=== PATIENT | male | born 1980 | race Caucasian/White ===

== ENCOUNTER 2019-07-29 20:59 | Emergency (ER) | payer MEDICAID ==
--- NOTE | 2019-07-29 21:46 | EDM.PDOC ---
ED HPI GENERAL MEDICAL PROBLEM - General Chief Complaint: Head Injury Stated Complaint: FELL AND HIT HEAD Time Seen by Provider: 07/29/19 21:23 Source of Information: Reports: Patient, Family History Limitations: Reports: No Limitations - History of Present Illness INITIAL COMMENTS - FREE TEXT/NARRATIVE: This is a 39-year-old male. Apparently he was working underneath a truck this evening and he managed to hit the back of his head on a brick drum. He does not remember much after that that he is got a headache and some dizziness he is not sure if he blacked out or had a seizure but he went into the house he was acting strange and did not make sense according to the family because of this they bring him to the ER and on their way in here he seemed to black out and was not responding to them. 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 Garcia at [facility]. 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 He is on clonazepam and temazepam. According to the family he is now making sense and he complains of some soreness in the back of his head on the left side at the mastoid process and occasionally tingling in his right fingers. He did get up and went to the bathroom with complete stability and no imbalance. Other than a headache he says he is feeling better and almost back to normal again. Head Pain Score (Numeric/FACES): 4 - Related Data Allergies Allergy/AdvReac Type Severity Reaction Status Date / Time Penicillins Allergy Rash Verified 07/29/19 21:10 Sulfa (Sulfonamide Allergy Rash Verified 07/29/19 21:10 Antibiotics) Home Meds: Home Meds . [No Known Home Meds] 12/05/13 [History] Past Medical History - Past Surgical History GI Surgical History: Reports: Hernia, Inguinal, Hernia Repair/Other Social & Family History - Tobacco Use Smoking Status *Q: Current Every Day Smoker Years of Tobacco use: 20 Packs/Tins Daily: 0.5 - Caffeine Use Caffeine Use: Reports: Soda - Recreational Drug Use Recreational Drug Use: No ED ROS GENERAL - Review of Systems Review Of Systems: See Below Constitutional: Denies: Fever, Chills HEENT: Reports: No Symptoms Respiratory: Denies: Shortness of Breath, Cough Cardiovascular: Denies: Chest Pain Endocrine: Reports: No Symptoms GI/Abdominal: Denies: Abdominal Pain, Diarrhea, Nausea, Vomiting : Reports: No Symptoms Musculoskeletal: Reports: No Symptoms Skin: Reports: No Symptoms Neurological: Reports: Confusion, Headache, Seizure Psychiatric: Reports: No Symptoms Hematologic/Lymphatic: Reports: No Symptoms ED EXAM, HEAD INJURY - Physical Exam Exam: See Below Exam Limited By: No Limitations General Appearance: Alert, WD/WN, No Apparent Distress Head: Normocephalic, Other (He complains of tenderness of the left mastoid process however there is no bruising there is no abrasion no swelling) Eyes: Bilateral Eye: Normal Inspection Ears: Normal External Exam, Normal Canal, Normal TMs Nose: Normal Inspection Throat/Mouth: Normal Inspection, Normal Lips, Normal Voice, No Airway Compromise Neck: Non-Tender, Full Range of Motion Respiratory: No Respiratory Distress, Lungs Clear, Normal Breath Sounds Cardiovascular: Regular Rate, Rhythm, No Murmur GI/Abdominal Exam: Soft, Non-Tender Back Exam: Normal Inspection, Full Range of Motion Extremities: Normal Inspection, Normal Range of Motion Neurologic: No Motor/Sensory Deficits, Alert, Normal Mood/Affect, Oriented x 3, Other (He appears to have no imbalance when he walks, he moves without difficulty.). No: Abnormal Gait Skin: Normal Color, Warm/Dry - [place] Coma Score Best Eye Response ([place]): (4) Open Spontaneously Best Verbal Response (Nicole): (5) Oriented Best Motor Response (Nicole): (6) Obeys Commands Nicole Total: 15 Course - Vital Signs Last Recorded V/S: Last Vital Signs Temp 97.1 F 07/29/19 21:04 Pulse 70 07/29/19 21:04 Resp 18 07/29/19 21:04 BP 139/94 H 07/29/19 21:04 Pulse Ox 97 07/29/19 21:04 - Orders/Labs/Meds Orders: Active Orders 24 hr Category Date Time Status Head wo Cont [CT] Stat Exams 07/29/19 21:46 Taken - Radiology Interpretation Free Text/Narrative:: CT scan of the head does not show any acute intracranial abnormality - Re-Assessments/Exams Free Text/Narrative Re-Assessment/Exam: 07/29/19 23:15 I spoke to the patient and the family regarding the CT scan results. I suggested that he continue with his medications and follow-up with his doctor this week for recheck in the meantime he does not need to be doing any strenuous activity that might cause a recurrence of his symptoms. The patient states he understands. Departure - Departure Time of Disposition: 23:17 Disposition: Home, Self-Care 01 Condition: Good Clinical Impression: Seizure disorder Closed head injury Qualifiers: Encounter type: initial encounter Qualified Code(s): S09.90XA - Unspecified injury of head, initial encounter - Discharge Information *PRESCRIPTION DRUG MONITORING PROGRAM REVIEWED*: Not Applicable *COPY OF PRESCRIPTION DRUG MONITORING REPORT IN PATIENT JYOTSNA: Not Applicable Instructions: Head Injury, Adult, [id number] Referrals: PCP,None [Primary Care Provider] - Forms: ED Department Discharge Additional Instructions: Sleep and rest as much as possible over the next 24 hours, call your doctor on Wednesday let them know that you hit your head and we believe you had a seizure with some confusional state afterwards that has cleared and see when they want us to follow-up with you for recheck, return to the ER as needed Sepsis Event Note - Evaluation Sepsis Screening Result: No Definite Risk - Focused Exam Vital Signs: Vital Signs Temp Pulse Resp BP Pulse Ox 07/29/19 21:04 97.1 F 70 18 139/94 H 97 Date Exam was Performed: 07/29/19 Time Exam was Performed: 23:15 - My Orders Last 24 Hours: My Active Orders 07/29/19 21:46 Head wo Cont [CT] Stat - Assessment/Plan Last 24 Hours: My Active Orders 07/29/19 21:46 Head wo Cont [CT] Stat
--- NOTE | 2019-07-30 08:53 | CT ---
Head CT Technique: Multiple axial sections through the brain were obtained. Intravenous contrast was not utilized. Comparison: No prior intracranial imaging is available. Findings: Ventricles along with basal cisterns and sulci over the convexities are within normal limits. No abnormal parenchymal densities are seen. No evidence of intracranial hemorrhage. No midline shift or mass-effect is seen. Bone window settings were reviewed. No acute calvarial abnormality is identified. Mastoid sinuses and visualized paranasal sinuses show nothing acute. Impression: 1. Nothing acute is appreciated on noncontrast head CT exam. Diagnostic code #1 This report was dictated in Mountain Standard Time I agree with preliminary report from [facility], finalized on 07/29/19, 11:40 PM Central Time
== END 2019-07-30 00:08 | disposition home or self-care (01) ==
LOC: JD.ED 20:59
DX: S09.90XA Unspecified injury of head, initial encounter (principal); R56.9 Unspecified convulsions; F17.210 Nicotine dependence, cigarettes, uncomplicated; Z88.0 Allergy status to penicillin; Z88.2 Allergy status to sulfonamides; W22.8XXA Striking against or struck by other objects, initial encounter
CPT/HCPCS: 70450; 70450-26; 99283; 99284-25

== ENCOUNTER 2020-02-10 12:38 | Emergency (ER) | payer OTHER ==
--- NOTE | 2020-02-10 13:22 | EDM.PDOC ---
ED HPI GENERAL MEDICAL PROBLEM - General Chief Complaint: Laceration Stated Complaint: RT HAND INDEX FINGER LAC Time Seen by Provider: 02/10/20 12:45 Source of Information: Reports: Patient, RN Notes Reviewed - History of Present Illness INITIAL COMMENTS - FREE TEXT/NARRATIVE: Lac injury dorsum of R MCP of index finger. Has a small flap lac that bled a lot initially, now stopped. Up to date with tetanus. 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 [No Known Home Meds] 12/05/13 [History] Past Medical History Neurological History: Reports: Seizure - Past Surgical History GI Surgical History: Reports: Hernia, Inguinal, Hernia Repair/Other Musculoskeletal Surgical History: Reports: Other (See Below) Other Musculoskeletal Surgeries/Procedures:: to have surgery 02-13 for 2 disc issues sto the neck from a fall Social & Family History - Tobacco Use Smoking Status *Q: Current Every Day Smoker Years of Tobacco use: 22 Packs/Tins Daily: 0.5 - Caffeine Use Caffeine Use: Reports: Soda - Recreational Drug Use Recreational Drug Use: No ED ROS GENERAL - Review of Systems Review Of Systems: See Below HEENT: Reports: No Symptoms Respiratory: Reports: No Symptoms Cardiovascular: Reports: No Symptoms GI/Abdominal: Reports: No Symptoms Musculoskeletal: Reports: Other (lac injury R hand) Neurological: Denies: Numbness, Tingling, Weakness ED EXAM, SKIN/RASH Exam: See Below General Appearance: Alert Head: Atraumatic Neck: Supple Respiratory/Chest: No Respiratory Distress Extremities: Other (1 cm lac injury dorsal MCP of R index finger, not deep, not gaping, no foreign material visible or palpable) Course - Vital Signs Last Recorded V/S: Last Vital Signs Temp 97.8 F 02/10/20 12:56 Pulse 72 02/10/20 12:56 Resp 20 02/10/20 12:56 BP 117/81 02/10/20 12:56 Pulse Ox 94 L 02/10/20 12:56 - Re-Assessments/Exams Free Text/Narrative Re-Assessment/Exam: 02/10/20 13:25 This lac could be sutured but it is small, shallow, nongaping. Pt prefers it be steristripped. He is having C spine surgery in about 4 days. He is worried about infection, prefers steristrips. Departure - Departure Time of Disposition: 13:20 Disposition: Home, Self-Care 01 Condition: Fair Clinical Impression: Hand laceration Qualifiers: Encounter type: initial encounter Foreign body presence: without foreign body Laterality: right Qualified Code(s): S61.411A - Laceration without foreign body of right hand, initial encounter - Discharge Information Referrals: PCP,None [Primary Care Provider] - Forms: ED Department Discharge Additional Instructions: Try keep steri strips on for about 7 to 10 days. Cling dressing over s teristrips will help them hold the laceration together better. Keep laceration area dry and clean. Have rechecked any sign of infection. Sepsis Event Note (ED) - Evaluation Sepsis Screening Result: No Definite Risk - Focused Exam Vital Signs: Vital Signs Temp Pulse Resp BP Pulse Ox 02/10/20 12:56 97.8 F 72 20 117/81 94 L
== END 2020-02-10 13:25 | disposition home or self-care (01) ==
LOC: JD.ED 12:38
DX: S61.411A Laceration without foreign body of right hand, initial encounter (principal); F17.210 Nicotine dependence, cigarettes, uncomplicated; Z88.0 Allergy status to penicillin; Z88.2 Allergy status to sulfonamides; W25.XXXA Contact with sharp glass, initial encounter
CPT/HCPCS: 99282

== ENCOUNTER 2020-12-07 14:16 | Emergency (ER) | payer MEDICAID, OTHER ==
--- NOTE | 2020-12-07 15:03 | EDM.PDOC ---
ED HPI GENERAL MEDICAL PROBLEM - General Chief Complaint: Upper Extremity Injury/Pain Stated Complaint: L WRIST INJURY Time Seen by Provider: 12/07/20 14:28 Source of Information: Reports: Patient History Limitations: Reports: No Limitations - History of Present Illness INITIAL COMMENTS - FREE TEXT/NARRATIVE: The patient presents with left wrist pain and swelling. He injured his wrist some how yesterday. He was working on a tractor and then he noticed some pain. He has an abrasion to his left hand and wrist. He noticed some swelling and pain to his left inner wrist this morning. He has no fever or chills. He is right handed. Onset: Gradual Duration: Day(s): Location: Reports: Upper Extremity, Left (wrist) Quality: Reports: Sharp Severity: Mild Improves with: Reports: None Worsens with: Reports: None Associated Symptoms: Reports: No Other Symptoms Left Wrist Pain Score (Numeric/FACES): 4 - Related Data Allergies Allergy/AdvReac Type Severity Reaction Status Date / Time Penicillins Allergy Severe Rash Verified 12/07/20 14:23 Sulfa (Sulfonamide Allergy Severe Rash Verified 12/07/20 14:23 Antibiotics) Home Meds: Home Meds Lisdexamfetamine Dimesylate [Vyvanse] 50 mg PO DAILY 12/07/20 [History] cephALEXin [Keflex] 500 mg PO Q6H #40 cap 12/07/20 [Rx] clonazePAM [Clonazepam] 1 mg PO BID PRN 12/07/20 [History] Past Medical History Neurological History: Reports: Seizure Psychiatric History: Reports: Anxiety, Bipolar - Past Surgical History GI Surgical History: Reports: Hernia, Inguinal, Hernia Repair/Other Musculoskeletal Surgical History: Reports: Other (See Below) Other Musculoskeletal Surgeries/Procedures:: to have surgery 02-13 for 2 disc issues sto the neck from a fall Social & Family History - Tobacco Use Tobacco Use Status *Q: Current Every Day Tobacco User Years of Tobacco use: 20 Packs/Tins Daily: 0.5 - Caffeine Use Caffeine Use: Reports: None - Recreational Drug Use Recreational Drug Use: No Review of Systems - Review of Systems Review Of Systems: See Below Constitutional: Reports: No Symptoms Eyes: Reports: No Symptoms Ears: Reports: No Symptoms Nose: Reports: No Symptoms Mouth/Throat: Reports: No Symptoms Respiratory: Reports: No Symptoms Cardiovascular: Reports: No Symptoms GI/Abdominal: Reports: No Symptoms Genitourinary: Reports: No Symptoms Musculoskeletal: Reports: Other (Erythema and edma to the left inner wrist) ED EXAM, GENERAL - Physical Exam Exam: See Below Exam Limited By: No Limitations General Appearance: Alert, No Apparent Distress Ears: Normal External Exam Nose: Normal Inspection Head: Atraumatic, Normocephalic Neck: Normal Inspection Respiratory/Chest: No Respiratory Distress Extremities: Other (Abrasion to her lert hand and wrist. She has erythema and edema to the left inner wrist. Good sensation and pulses distally.) Course - Vital Signs Last Recorded V/S: Last Vital Signs Temp 98.1 F 12/07/20 14:25 Pulse 93 12/07/20 14:25 Resp 13 12/07/20 14:25 BP 134/80 12/07/20 14:25 Pulse Ox 98 12/07/20 14:25 - Orders/Labs/Meds Orders: Active Orders 24 hr Category Date Time Status Wrist Comp Min 3V Lt [CR] Stat Exams 12/07/20 14:45 Taken - Re-Assessments/Exams Free Text/Narrative Re-Assessment/Exam: 12/07/20 15:02 I ordered an x-ray and it looks good. I feel this is some cellulitis. I will get him on some keflex. 12/07/20 15:18 The patient tells me now that his wrist was hit by something yesterday. He did not tall me that earlier. This is a contusion. I will get him a wrist splint and he can ice and take tylenol or motrin for pain. I will give him a prescript ion for keflex and if it is more red and swollen he can take it. Departure - Departure Time of Disposition: 15:25 Disposition: Home, Self-Care 01 Condition: Good Clinical Impression: Contusion of left wrist Qualifiers: Encounter type: initial encounter Qualified Code(s): S60.212A - Contusion of left wrist, initial encounter - Discharge Information *PRESCRIPTION DRUG MONITORING PROGRAM REVIEWED*: Not Applicable *COPY OF PRESCRIPTION DRUG MONITORING REPORT IN PATIENT JYOTSNA: Not Applicable Prescriptions: cephALEXin [Keflex] 500 mg PO Q6H #40 cap Referrals: PCP,None [Primary Care Provider] - Surinder Moss PA-C [Physician Residential Manager] - 1 Week Forms: ED Department Discharge Additional Instructions: Wear the splint to avoid further injury. Ice your wrist for 15 minutes 3 times per day for 2 days. Take tylenol or motrin for pain. If the redness and swelling get worse try taking the keflex. Follow up with Surinder Moss in our clinic within a week. Please return if you are worse. Sepsis Event Note (ED) - Evaluation Sepsis Screening Result: No Definite Risk - Focused Exam Vital Signs: Vital Signs Temp Pulse Resp BP Pulse Ox 12/07/20 14:25 98.1 F 93 13 134/80 98 - My Orders Last 24 Hours: My Active Orders 12/07/20 14:45 Wrist Comp Min 3V Lt [CR] Stat - Assessment/Plan Last 24 Hours: My Active Orders 12/07/20 14:45 Wrist Comp Min 3V Lt [CR] Stat
--- NOTE | 2020-12-08 09:13 | CR ---
Left wrist: 4 views of the left wrist were obtained. Comparison: No prior studies available. Small cyst is noted within the distal radius along the ulnar side. This cyst shows a sclerotic margin and has a size of 6 mm. This is most likely chronic. Joint spaces are fairly well preserved. No acute fracture or other abnormality is appreciated. Impression: 1. Cyst within the distal epiphysis of the radius. This is most likely chronic. 2. Nothing acute is appreciated on the prior study. Diagnostic code #2
== END 2020-12-07 15:32 | disposition home or self-care (01) ==
LOC: JD.ED 14:16
DX: S60.212A Contusion of left wrist, initial encounter (principal); Z88.2 Allergy status to sulfonamides; Z72.0 Tobacco use; Z88.0 Allergy status to penicillin; X58.XXXA Exposure to other specified factors, initial encounter; Y99.0 Civilian activity done for income or pay
CPT/HCPCS: 73110-26-LT; 73110-LT; 99283

== ENCOUNTER 2021-02-14 08:02 | Emergency (ER) | payer MEDICAID ==
--- NOTE | 2021-02-14 08:18 | EDM.PDOC ---
ED HPI GENERAL MEDICAL PROBLEM - General Chief Complaint: Respiratory Problem Stated Complaint: SINUS PROBLEMS Time Seen by Provider: 02/14/21 08:06 Source of Information: Reports: Patient History Limitations: Reports: No Limitations - History of Present Illness INITIAL COMMENTS - FREE TEXT/NARRATIVE: 40-year-old male presents to the ED for evaluation of right hemifacial pain o verlying his maxillary sinus right side of his nose and tip of his nose. He states he has been having sinus pressure discomfort for the last 5 to 6 days and is prone to sinus infection due to deviated nasal septum. No previous nasal surgery. He states this morning there is increased swelling overlying the right medial side of his nose and the soft tissues overlying the maxillary sinus inferior to his eye. He describes as a pressure sensation. The tip of his nose is also somewhat reddened and tender to touch. No known injuries. He is aware of some postnasal drip and mild intermittent cough. No fever or chills. No headache. Onset: Gradual Onset Date: 02/09/21 Duration: Day(s):, Getting Worse Location: Reports: Face (Right hemiface overlying his maxillary sinus and the soft tissues adjacent to his nose and tip of his nose.) Quality: Reports: Ache, Throbbing Severity: Mild Improves with: Reports: None Worsens with: Reports: Other Context: Denies: Activity, Exercise (Touch.), Lifting, Sick Contact, Trauma, Other Associated Symptoms: Reports: Cough (Intermittent mild cough which she is prone to and is no worse than normal.), Other. 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 below) (None.) Headache Pain Score (Numeric/FACES): 4 - Related Data Allergies Allergy/AdvReac Type Severity Reaction Status Date / Time Penicillins Allergy Severe Rash Verified 02/14/21 08:10 Sulfa (Sulfonamide Allergy Severe Rash Verified 02/14/21 08:10 Antibiotics) Home Meds: Home Meds Lisdexamfetamine Dimesylate [Vyvanse] 50 mg PO DAILY 12/07/20 [History] clonazePAM [Clonazepam] 1 mg PO BID PRN 12/07/20 [History] Cefdinir [Omnicef] 300 mg PO BID #20 cap 02/14/21 [Rx] Past Medical History Neurological History: Reports: Seizure Psychiatric History: Reports: ADHD, Anxiety, Bipolar - Past Surgical History GI Surgical History: Reports: Hernia, Inguinal, Hernia Repair/Other Musculoskeletal Surgical History: Reports: Other (See Below) Other Musculoskeletal Surgeries/Procedures:: to have surgery 02-13 for 2 disc issues sto the neck from a fall Social & Family History - Caffeine Use Caffeine Use: Reports: None - Living Situation & Occupation Living situation: Reports: Single Occupation: Employed ED ROS GENERAL - Review of Systems Review Of Systems: See Below Constitutional: Denies: Fever, Chills, Malaise, Weakness, Fatigue, Decreased Appetite, Weight Loss HEENT: Reports: Sinus Problem. Denies: Ear Pain Respiratory: Reports: Cough (Intermittent intermittent cough occasionally productive he believes due to postnasal drip.) Cardiovascular: Reports: No Symptoms Endocrine: Reports: No Symptoms GI/Abdominal: Reports: No Symptoms : Reports: No Symptoms Musculoskeletal: Reports: No Symptoms Skin: Reports: Other (There is soft tissue swelling adjacent to the right lateral neck near nose overlying the maxillary sinus and then involving the right alae of the nose and the tip of the nose is slightly reddened and tender to touch. He has a degree of cellulitis overlying his right maxillary sinus.) Neurological: Reports: No Symptoms, Confusion, Dizziness, Headache, Numbness Psychiatric: Reports: Other (Is on medication for attention deficit disorder.) Hematologic/Lymphatic: Reports: No Symptoms Immunologic: Reports: No Symptoms ED EXAM, GENERAL - Physical Exam Exam: See Below Exam Limited By: No Limitations General Appearance: Alert, WD/WN, No Apparent Distress, Other (Obvious erythema and swelling overlying his right maxillary sinus and the right alae of the nose and tip of the nose is slightly reddened as well. Vital signs show temperature of 36.3 with a heart rate of 64 and sinus. Respiratory is 18 with O2 sats of 100% room air. BP mildly elevated one 6499. He ) Eye Exam: Bilateral Eye: Normal Inspection (No blepharal pallor or scleral icterus), Periorbital Changes (No periorbital changes.), PERRL Ear Exam: Bilateral Ear: TM normal Nose: Nasal Swelling (Right ala of the nose is swollen and tender as is the soft tissues overlying his right maxillary sinus.), Other (Swelling of the right ala of the nose and tip of the nose with slight erythema and tenderness to touch. Very mildly warm to palpation.) Throat/Mouth: Normal Inspection, Normal Lips, Normal Teeth, Normal Oropharynx, Other (Tonsils are present without exudate.) Head: Atraumatic, Normocephalic Neck: Normal Inspection, Supple, Non-Tender, Full Range of Motion. No: Lymphadenopathy (L), Lymphadenopathy (R) Respiratory/Chest: No Respiratory Distress, Lungs Clear, Normal Breath Sounds, No Accessory Muscle Use Cardiovascular: Normal Peripheral Pulses, Regular Rate, Rhythm, No Edema, No Gallop, No Murmur, No Rub Course - Vital Signs Last Recorded V/S: Last Vital Signs Temp 36.3 C 02/14/21 08:08 Pulse 64 02/14/21 08:08 Resp 18 02/14/21 08:08 BP 164/99 H 02/14/21 08:08 Pulse Ox 100 02/14/21 08:08 - Radiology Interpretation Free Text/Narrative:: 40-year-old male presents to the ED with right hemifacial pain overlying his right maxillary sinus and right alae of his nose and tip of his nose. He states sinus pressure discomfort has been gradually building and worsening over the last 5 days. He is prone to recurrent sinus disease due to deviated nasal septum. No reported nasal polyps. Overnight the swelling in the right side of his face and right lateral nose and tip of his nose has worsened. Plan he will be treated with Omnicef antibiotic 300 mg twice daily for the next 10 days. Motrin 600 mg every 6 hours p.m. for pain relief as needed. Departure - Departure Time of Disposition: 08:16 Disposition: Home, Self-Care 01 Condition: Fair Clinical Impression: Sinusitis, acute Qualifiers: Sinusitis location: maxillary Recurrence: recurrent Qualified Code(s): J01.01 - Acute recurrent maxillary sinusitis - Discharge Information *PRESCRIPTION DRUG MONITORING PROGRAM REVIEWED*: Not Applicable *COPY OF PRESCRIPTION DRUG MONITORING REPORT IN PATIENT JYOTSNA: Not Applicable Prescriptions: Cefdinir [Omnicef] 300 mg PO BID #20 cap Instructions: Sinusitis, Adult, [id number] Referrals: PCP,None [Primary Care Provider] - Forms: ED Department Discharge Additional Instructions: Evaluation in the emergency room today in regards to developing infection overlying the right maxillary sinus and soft tissues of the right side of your nose and tip of the nose indicating some degree of infection within the skin itself which we call cellulitis. Suggest use of antibiotic Omnicef 300 mg tablet twice daily for the next 10 days to clear up infection. Motrin 600 mg every 6 hours if needed for pain relief. Expect improvement over the next 48 to 72 hours. Sepsis Event Note (ED) - Evaluation Sepsis Screening Result: No Definite Risk - Focused Exam Vital Signs: Vital Signs Temp Pulse Resp BP Pulse Ox 02/14/21 08:08 36.3 C 64 18 164/99 H 100
== END 2021-02-14 08:25 | disposition home or self-care (01) ==
LOC: JD.ED 08:02
DX: J01.01 Acute recurrent maxillary sinusitis (principal); Z79.899 Other long term (current) drug therapy; Z88.2 Allergy status to sulfonamides; Z88.0 Allergy status to penicillin
CPT/HCPCS: 99283